=== PATIENT | male | born 1980 | race Caucasian/White ===

== ENCOUNTER 2017-03-03 17:24 | Emergency (ER) | payer BC ==
[2017-03-03 17:59] VITALS: BP 129/81
--- NOTE | 2017-03-03 18:06 | UC ---
Throat Pain/Nasal Kev HPI - HPI Summary HPI Summary: 37 YEAR OLD MALE PRESENTS WITH SORE THROAT AND NASAL CONGESTION. - History of Current Complaint Chief Complaint: UCGeneralIllness Stated Complaint: SORE THROAT Time Seen by Provider: 03/03/17 18:01 - Allergies/Home Medications Allergies/Adverse Reactions: Allergies Allergy/AdvReac Type Severity Reaction Status Date / Time environment Allergy Congestion Uncoded 03/03/17 17:56 PMH/Surg Hx/FS Hx/Imm Hx - Surgical History Surgical History: Yes Surgery Procedure, Year, and Place: septoplasty/rhinoplasty 2009 - Family History Known Family History: Positive: None, Other - TOBACCO ABUSE - Social History Alcohol Use: Occasionally Alcohol Amount: a couple a week Substance Use Type: None Smoking Status (MU): Never Smoked Tobacco - Immunization History Most Recent Influenza Vaccination: "I can't remember [for 2014/2015]" Review of Systems Constitutional: Negative Skin: Negative Eyes: Negative ENT: Nasal Discharge, Sinus Congestion, Sinus Pain/Tenderness Respiratory: Negative Cardiovascular: Negative Gastrointestinal: Negative Genitourinary: Negative Motor: Negative Neurovascular: Negative Musculoskeletal: Negative Neurological: Negative Psychological: Negative All Other Systems Reviewed And Are Negative: Yes Physical Exam Triage Information Reviewed: Yes Vital Signs: Initial Vital Signs Temp 37.9 C 03/03/17 17:57 Pulse 74 03/03/17 17:57 Resp 16 03/03/17 17:57 BP 129/81 03/03/17 17:57 Pulse Ox 97 03/03/17 17:57 Eye Exam: Normal ENT: Positive: Pharyngeal erythema, Nasal congestion Dental Exam: Normal Neck exam: Normal Neck: Positive: 1 Respiratory Exam: Normal Cardiovascular Exam: Normal Abdominal Exam: Normal Musculoskeletal Exam: Normal Neurological Exam: Normal Psychological Exam: Normal Skin Exam: Normal Throat Pain/Nasal Course/Dx - Differential Dx/Diagnosis Provider Diagnoses: PAHRYNGITIS. NASAL CONGESTION Discharge - Discharge Plan Condition: Stable Disposition: HOME Prescriptions: Azithromycin TAB* [Zithromax TAB (Z-ANNE-MARIE) 250 mg #6 tabs] 2 tab PO .TODAY, THEN 1 DAILY #1 anne-marie LoraTADine TAB(NF) [Claritin 10 MG TAB(NF)] 10 mg PO DAILY #30 tab Magic M W2 Donte/Maal/Nyst/Lido* 15 ml SWISH SPIT QID #120 ml Patient Education Materials: Pharyngitis (ED) Referrals: Sha Gaitan DO [Primary Care Provider] - If Needed
== END 2017-03-03 18:34 | disposition home or self-care (01) ==
LOC: UCCORT 17:24
DX: J02.9 Acute pharyngitis, unspecified (principal); R09.81 Nasal congestion
CPT/HCPCS: 87651; 99212; G0463

== ENCOUNTER 2017-12-12 08:05 | Emergency (ER) | payer BC ==
--- OUTSIDE RECORDS SUMMARY | 2017-12-12 08:12 | XMS REPORT ---
:1980 External Reference #:[id number] Author Organization [facility] Address [address] [address] Phone [phone] Care Team Providers Name Role Phone Maynor Hargrove DO Care Team Information [employer] Unavailable Payers Type Date Identification Numbers Payment Provider Subscriber Health Maintenance Policy Number: [id number] [facility] [employer] ([employer]) PayID: [id number] [address] [address] [place] [address] Problems Description No Information Family History Date Family Member(s) Problem(s) Comments Mother Cancer, Lung Grandmother Hypercholesterolemia Maternal Uncles Cancer, Lung Social History Type Date Description Comments Education Higest level completed, Bachelor's Degree Occupation Sales ETOH Use Rarely consumes alcohol Smoking Patient has never smoked Recreational Drug Use Denies Drug Use Daily Caffeine Consumes on average 1 cup of coffee per day Allergies, Adverse Reactions, Alerts Date Description Reaction Status Severity Comments 09/13/2015 Seasonal active 09/13/2015 Environmental active Medications Medication Date Status Form Strength Qnty SIG Indications Ordering Provider Omeprazole 09/04/ Active Capsules DR 40mg 60caps 1 By Arnie 2014 Mouth Maynor, Twice A DO Day Vitamin B12 / Active Chewables 3 by Unknown 0000 mouth every day Doxycycline 09/30/ Hx Capsules 100mg 20caps 1 by J01.90 Ozzy Hargrove 2018 - mouth Maynor, 10/10/ twice a DO 2018 day x 10 days Fluticasone 09/30/ Hx Suspension 50mcg/Act 16unit 1 spray J01.90 Hargrove, Propionate 2018 - s each Maynor, 10/15/ nostril DO 2017 twice a day Fluticasone 09/08/ Hx Suspension 50mcg/Act 16unit 1 spray J01.90 Hargrove, Propionate 2017 - s each Maynor, 09/22/ nostril DO 2016 twice a day Doxycycline 09/08/ Hx Capsules 100mg 20caps 1 by J01.90 Arnie Hyclate 2017 - mouth Maynor, 09/18/ twice a DO 2017 day x 10 days Immunizations CPT Code Status Date Vaccine Lot # [id number] Given 03/24/2016 Tdap (Boostrix)tetanus, diptheria toxoid & acellular pertussis [id number] Given 09/13/2015 Tdap (Adacel) Ages 7 And Above Only [id number] Vital Signs Date Vital Result Comment 11/13/2017 Weight 220.00 lb Heart Rate 80 /min BP Systolic 118 mmHg BP Diastolic 74 mmHg Respiratory Rate 17 /min Height 68.5 inches 5'8.50" (09/2017) BMI (Body Mass Index) 33.0 kg/m2 09/30/2017 Body Temperature 98.1 F Weight 221.00 lb Heart Rate 78 /min BP Systolic 130 mmHg BP Diastolic 88 mmHg Respiratory Rate 17 /min Height 68.5 inches 5'8.50" (09/2017) O2 % BldC Oximetry 96 % BMI (Body Mass Index) 33.1 kg/m2 09/29/2016 Weight 215.00 lb Heart Rate 72 /min BP Systolic 126 mmHg BP Diastolic 70 mmHg Respiratory Rate 18 /min Height 68.5 inches 5'8.50" (09/2016) BMI (Body Mass Index) 32.2 kg/m2 09/08/2016 Body Temperature 98.4 F Weight 214.00 lb Heart Rate 88 /min BP Systolic 126 mmHg BP Diastolic 72 mmHg Respiratory Rate 18 /min Height 68.5 inches 5'8.50" (08/2015) O2 % BldC Oximetry 98 % BMI (Body Mass Index) 32.1 kg/m2 09/13/2015 Weight 224.00 lb Heart Rate 78 /min BP Systolic 130 mmHg BP Diastolic 80 mmHg Respiratory Rate 18 /min Height 68.5 inches 5'8.50" (08/2015) BMI (Body Mass Index) 33.6 kg/m2 12/23/2013 Weight 214.00 lb Heart Rate 76 /min BP Systolic 130 mmHg BP Diastolic 84 mmHg Respiratory Rate 18 /min 11/02/2013 Weight 218.00 lb Heart Rate 70 /min BP Systolic 140 mmHg BP Diastolic 72 mmHg Respiratory Rate 18 /min 09/01/2011 Heart Rate 88 /min BP Systolic 108 mmHg BP Diastolic 80 mmHg Respiratory Rate 18 /min 07/09/2009 Weight 194.00 lb Heart Rate 72 /min BP Systolic 120 mmHg BP Diastolic 80 mmHg Respiratory Rate 13 /min Results Test Date Test Result H/L Range Note Laboratory test 11/13/2017 Surgical <pending> finding Pathology-[facility] CBC With Auto Diff 11/09/2017 WBC 6.4 K/uL 4.1-11.0 RBC 5.09 M/uL 4.60-6.10 Hemoglobin 15.6 gm/dL 13.5-18.0 Hematocrit 44.1 % 41.0-53.0 MCV 86.7 fL 80.0-97.0 MCH 30.7 pg 27.0-32.0 MCHC 35.4 g/dL 32.0-36.0 RDW 12.7 % 11.5-14.5 PLT Count 164 K/ul 140-400 MPV 10.3 FL 7.1-10.7 Neutrophil 47.8 % 35.0-75.0 Lymphocyte 39.1 % 16.0-52.0 Monocyte 7.3 % 2.0-10.0 Eosinophil 5.1 % High 0.0-5.0 Basophil 0.7 % 0.0-4.0 Abs Neutrophils 3.1 K/uL 2.1-8.0 Abs Lymphocytes 2.5 K/uL 0.8-5.5 Abs Monocytes 0.5 K/uL 0.1-1.0 Abs Eosinophils 0.3 K/uL 0.0-0.5 Abs Basophils 0.0 K/uL 0.0-0.3 Basic (BMP) 11/09/2017 Sodium 142 mmol/L 135-146 1 Potassium 3.9 mmol/L 3.5-5.2 Chloride# 105 mmol/L 97-110 2 Carbon Dioxide 27 mmol/L 24-34 Glucose 103 mg/dL 70-105 BUN 12 mg/dL 6-26 Creatinine 1.1 mg/dL 0.5-1.4 Calcium 9.3 mg/dL 8.5-10.2 Non [place] Egfr >60 >60 3 [place] Egfr >60 >60 4 Anion Gap 10 mmol/L 5-15 5 Laboratory test finding 11/09/2017 TSH 0.94 uIU/mL 0.35-4.94 Lipid Treatment 11/09/2017 Cholesterol 196 mg/dL 50-199 Triglycerides 178 mg/dL 30-200 HDL 43 mg/dL 29-71 6 Chol/ HDL Ratio 4.6 ratio 4.0-6.7 VLDL 36 mg/dL High 2-29 LDL (Calc) 118 mg/dL High 20-99 7 Alt 53 U/L High 3-42 Ast 30 U/L 8-42 Laboratory test finding 12/26/2013 Surgical Pathology See Note 8 1 Updated reference range on new analyzer 2 Updated reference range on new analyzer 3 Concerning GFR Guidelines: Normal function or mild renal disease, if clinically at risk: >/=60 mL/min Moderately decreased: 30-59 Severely decreased: 15-29 Renal failure: <15 Glomerular Filtration Rate (GFR) is estimated based on the MDRD equation, which assumes a steady state for creatinine as recommended by the National Kidney Disease Education Program in conjunction with the National Institutes of Health and the National Kidney Foundation. Clinical conditions in which it may be necessary to measure GFR by using clearance methods include extremes of age and body size, severe malnutrition or obesity, diseases of skeletal muscle, paraplegia or quadriplegia, vegetarian diet, rapidly changing kidney function, and calculation of the dose of potentially toxic drugs that are excreted by the kidneys. 4 Concerning GFR Guidelines for Americans: Normal function or mild renal disease, if clinically at risk: >/=60 mL/min Moderately decreased: 30-59 Severely decreased: 15-29 Renal failure: <15 5 Updated Reference Range 6 Per NCEP ATP III Guidelines: Results lower than 40 mg/dL are suggestive of increased risk for coronary artery disease. Results > or=to 60 mg/dL are considered a negative risk factor. 7 Per NCEP ATP III Guidelines: Normal Population <130 Patients with medical conditions: CHD/DM Optimal: <100 Borderline high: 130-159 High: 160-189 Very high: >189 8 [facility] [address] [facility], [address] [place] [address] SURGICAL PATHOLOGY REPORT Name: Darwin Martinez Pathology #: [id number] : 1980 (Age: 33) Sex: M Location: [facility] Med. Rec. # [id number] Date of Procedure: 12/23/2013 Billing #: [id number] Date Received: 12/26/2013 Requisition #: [id number] Physician(s): MAYNOR HARGROVE DO Specimen(s) Received: A: Right neck B: Left neck C: Left scapula D: Right mid back Clinical Information: Lesions present for year, now irritating. Four superficial skin lesions, hypertrophic lesions, right and left neck, left scapula and right mid back. Seborrheic keratosis vs skin tag, rule out cancer. 701.9 Gross Description: Specimen A received in formalin and labeled "right neck" is a soft rubbery gomez hylton granular hair bearing polypoid tissue fragment measuring 0.9 cm in greatest dimension. Specimen is bisected and entirely submitted. (1 block) Specimen B received in formalin and labeled "left neck" is a soft rubbery gomez hylton polypoid tissue fragment measuring 0.5 cm in greatest dimension. Specimen is bisected and entirely submitted. (1 block) Specimen C received in formalin and labeled "left scapula" is a soft rubbery gomez hylton granular hair bearing polypoid tissue fragment measuring 1.0 cm in greatest dimension. Specimen is trisected and entirely submitted. (1 block) Specimen D received in formalin and labeled "right mid back" is a soft rubbery gomez hylton hair bearing polypoid tissue fragment measuring 0.8 cm in greatest dimension. Specimen is bisected and entirely submitted. (1 block ) lr /HKS Diagnosis: A) RIGHT NECK SKIN - INTRADERMAL NEVUS, PIGMENTED. B) LEFT NECK SKIN - INTRADERMAL NEVUS, PIGMENTED. C) LEFT SCAPULA SKIN - INTRADERMAL NEVUS , PIGMENTED. D) RIGHT MID BACK SKIN - INTRADERMAL NEVUS, PIGMENTED. Reported: 12/27/2013 Electronic Signature cf Laila Capone MD [facility] ICD-9 Codes: 216.9 Procedures Date CPT Code Description Status 11/13/2017 60703 Remove Skin Tags Up To 15 Completed 09/30/2017 54011 Visual Screening Test Completed 09/30/2017 86375 Screening Hearing Test Completed 09/29/2016 03021 Visual Screening Test Completed 09/29/2016 53377 Screening Hearing Test Completed 09/08/2016 33491 Measure Blood Oxygen Level Single Determination Completed Encounters Type Date Location Provider CPT E/M Dx Office Visit 09/30/2017 10:30a [facility] [place] [address] Z00.00 K21.9 G47.9 L91.8 R03.0 J01.90 Z68.33 Office Visit 09/29/2016 9:00a [facility] [place] [address] Z00.00 K21.9 G47.9 Z68.32 L91.8 Office Visit 09/08/2016 1:00p [facility] [place] [address] J01.90 Office Visit 09/13/2015 2:00p [place] [address] Z23 Z00.00 K21.9 G47.9 Z68.33 J06.9 Plan of Care Future Appointment(s):10/01/2018 9:00 am - Maynor Hargrove DO at [facility]11/13/2017 - Maynor Hargrove, DOL91.8 Other hypertrophic disorders of the skinFollow up: Follow up as needed
[2017-12-12 08:20] VITALS: BP 125/77
--- NOTE | 2017-12-12 08:27 | UC ---
UC General HPI - HPI Summary HPI Summary: pt is c/o sinus congestion and drainage for 2.5 weeks. it is worsening and colored now. post nasal drip is causing a sore throat. - History of Current Complaint Stated Complaint: SINUS/COLD/ST Time Seen by Provider: 12/12/17 08:14 Hx Obtained From: Patient Onset/Duration: Gradual Onset Timing: Constant Aggravating: nothing Alleviating: nothing Associated Signs & Symptoms: Negative: Headache - Allergy/Home Medications Allergies/Adverse Reactions: Allergies Allergy/AdvReac Type Severity Reaction Status Date / Time environment Allergy Congestion Uncoded 12/12/17 08:20 PMH/Surg Hx/FS Hx/Imm Hx - Additional Past Medical History Additional PMH: sinusitis, allergies GI/ History: Gastroesophageal Reflux - Surgical History Surgical History: Yes Surgery Procedure, Year, and Place: septoplasty/rhinoplasty 2009 - Family History Known Family History: Positive: None, Other - TOBACCO ABUSE - Social History Occupation: Employed Full-time Lives: With Family Alcohol Use: Occasionally Alcohol Amount: a couple a week Substance Use Type: None Smoking Status (MU): Never Smoked Tobacco - Immunization History Most Recent Influenza Vaccination: "I can't remember [for 2014/2015]" Vaccination Up to Date: Yes Review of Systems Constitutional: Negative Skin: Negative Eyes: Negative ENT: Sore Throat, Nasal Discharge, Sinus Congestion, Sinus Pain/Tenderness Respiratory: Negative Cardiovascular: Negative Gastrointestinal: Negative Genitourinary: Negative Motor: Negative Neurovascular: Negative Musculoskeletal: Negative Neurological: Negative Psychological: Negative Is Patient Immunocompromised?: No All Other Systems Reviewed And Are Negative: Yes Physical Exam Triage Information Reviewed: Yes Appearance: Well-Appearing Vital Signs Reviewed: Yes Eyes: Positive: Conjunctiva Clear ENT: Positive: Pharyngeal erythema, Nasal congestion, TMs normal, Sinus tenderness, Uvula midline. Negative: Nasal drainage Neck: Positive: Supple, Nontender, No Lymphadenopathy Respiratory: Positive: Lungs clear, Normal breath sounds Cardiovascular: Positive: RRR, No Murmur Abdomen Description: Positive: Nontender, No Organomegaly, Soft Bowel Sounds: Positive: Present Musculoskeletal: Positive: ROM Intact Neurological: Positive: Alert Psychological: Positive: Age Appropriate Behavior Skin Exam: Normal Course/Dx - Course Course Of Treatment: hx same. fails augmentin but does well with doxycycline, allergy and nasal steroid. - Differential Dx - Multi-Symptom Provider Diagnoses: sinusitis Discharge - Sign-Out/Discharge Documenting (check all that apply): Discharge - Discharge Plan Condition: Stable Disposition: HOME Prescriptions: DOXYcycline CAP(*) [DOXYcycline 100MG CAP(*)] 100 mg PO BID #20 cap Fluticasone NASAL SPRAY 50MCG* [Flonase NASAL SPRAY 50MCG*] 2 spray BOTH NARES DAILY #1 btl Loratadine 10 mg PO QAM #30 capsule Patient Education Materials: Sinusitis (ED) Referrals: Sha Gaitan DO [Primary Care Provider] - 7 Days - Billing Disposition and Condition Condition: STABLE Disposition: HOME
== END 2017-12-12 08:42 | disposition home or self-care (01) ==
LOC: UCCORT 08:05
DX: J32.9 Chronic sinusitis, unspecified (principal)
CPT/HCPCS: 99212; G0463

== ENCOUNTER 2019-09-25 12:25 | Emergency (ER) | payer BC ==
[2019-09-25 15:41] VITALS: BP 121/72
--- NOTE | 2019-09-25 15:47 | UC ---
Throat Pain/Nasal Kev HPI - HPI Summary HPI Summary: 3 wks of sinus pain/pressure, mercedes. Taking mucinex and tylenol/dayquil prn. did not get flu shot this yr. nothing makes it worse. denies tooth pain or fever. - History of Current Complaint Chief Complaint: UCRespiratory Stated Complaint: SINUS INFECTION Time Seen by Provider: 09/25/19 15:35 Hx Obtained From: Patient Pain Intensity: 0 Cough: None Associated Signs & Symptoms: Negative: Wheezing, Fever - Allergies/Home Medications Allergies/Adverse Reactions: Allergies Allergy/AdvReac Type Severity Reaction Status Date / Time No Known Allergies Allergy Verified 09/25/19 15:38 Home Medications: Home Medications Omeprazole 20 mg PO DAILY PRN 09/25/19 [History Confirmed 09/25/19] PMH/Surg Hx/FS Hx/Imm Hx Previously Healthy: Yes GI/ History: Gastroesophageal Reflux - Surgical History Surgical History: Yes Surgery Procedure, Year, and Place: septoplasty/rhinoplasty 2009 - Family History Known Family History: Positive: None, Other - TOBACCO ABUSE - Social History Alcohol Use: Occasionally Alcohol Amount: a couple a week Substance Use Type: None Smoking Status (MU): Never Smoked Tobacco - Immunization History Most Recent Influenza Vaccination: "I can't remember [for ]" Vaccination Up to Date: Yes Review of Systems All Other Systems Reviewed And Are Negative: Yes Constitutional: Negative: Fever Skin: Negative: Rash ENT: Positive: Nasal Discharge, Sinus Congestion, Sinus Pain/Tenderness. Negative: Dental Pain, Sore Throat, Ear Ache Gastrointestinal: Negative: Vomiting, Nausea Neurological: Negative: Headache Physical Exam Triage Information Reviewed: Yes Completion Of Physical Exam Limited Due To: Extremis Vital Signs: Initial Vital Signs Temp 97.4 F 09/25/19 15:38 Pulse 94 09/25/19 15:38 Resp 16 09/25/19 15:38 BP 121/72 09/25/19 15:38 Pulse Ox 96 09/25/19 15:38 Vital Signs Reviewed: Yes ENT: Positive: Pharynx normal, TMs normal, Uvula midline. Negative: Muffled voice, Hoarse voice, Dental tenderness, Sinus tenderness Neck: Positive: Supple, Nontender, No Lymphadenopathy Respiratory Exam: Normal Cardiovascular Exam: Normal Neurological: Positive: Alert Skin: Negative: Rashes Throat Pain/Nasal Course/Dx - Course Course Of Treatment: 3 wk hx of sinusitis and am willing to tx. he requested flonase w/ this. on exam very little abnormalities. vitals are good. has remained afebrile. - Differential Dx/Diagnosis Differential Diagnosis/HQI/PQRI: Pharyngitis, Sinusitis, URI, Other Provider Diagnosis: Sinusitis Discharge ED - Sign-Out/Discharge Documenting (check all that apply): Patient Departure All imaging exams completed and their final reports reviewed: No Studies - Discharge Plan Condition: Good Disposition: HOME Prescriptions: Amoxicillin/Clavulanate TAB* [Augmentin TAB 500 mg*] 500 mg PO BID 7 Days #14 tab Fluticasone NASAL SPRAY 50MCG* [Flonase NASAL SPRAY 50MCG*] 2 spray BOTH NARES DAILY PRN #1 btl PRN Reason: Congestion Patient Education Materials: Sinusitis (ED) Referrals: Sha Gaitan DO [Primary Care Provider] - Additional Instructions: if worsening please see your primary care provider. - Billing Disposition and Condition Condition: GOOD Disposition: Home
== END 2019-09-25 15:52 | disposition home or self-care (01) ==
LOC: UCCORT 12:25
DX: J32.9 Chronic sinusitis, unspecified (principal); K21.9 Gastro-esophageal reflux disease without esophagitis; Z79.899 Other long term (current) drug therapy
CPT/HCPCS: 99212; G0463